=== PATIENT | male | born 1990 | race African-American/Black ===

== ENCOUNTER 2019-04-19 09:16 | Day surgery (SDC) | payer OTHER ==
[2019-04-18 16:50] VITALS: Ht 172.7 cm; Wt 72.7 kg
[2019-04-19] VITALS (16 sets, daily range): BP systolic 133–161; BP diastolic 68–101; PULSE 67–88; RESP 9–40
[~2019-04-19] VITALS: Ht 172.7 cm; Wt 72.7 kg
[~2019-04-19 09:16] MED LIST: CEPH500C PO
[2019-04-19] MEDS ORDERED: LACTATED RINGER'S 1,000 ML IV SCH (10:30)
[2019-04-19] MEDS ORDERED: LIDOCAINE 1%/EPI (1:100,000) (MDV) 20 ML ONE (11:17)
[2019-04-19] MEDS ORDERED: OXYMETAZOLINE 0.05% NASAL SPRAY (15 ML) NASAL ONE (11:18)
[2019-04-19] MEDS ORDERED: ONDANSETRON 4 MG INJ IV PRN (11:30)
[2019-04-19] MEDS ORDERED: DIPHENHYDRAMINE 50 MG INJ IV PRN (11:30)
[2019-04-19] MEDS ORDERED: FENTAnyl 50 MCG/ML VIAL IV PRN ×3 (11:30)
[2019-04-19] MEDS ORDERED: OXYCODONE/ACETAMINOPHEN (5/325) TAB PO PRN (11:30)
[2019-04-19] MEDS ORDERED: HYDROmorphONE 1 MG/5 ML IV SYRINGE IV PRN ×3 (11:30)
[2019-04-19] MEDS ORDERED: PROCHLORPERAZINE 10 MG INJ IV PRN (11:30)
[2019-04-19] MEDS ORDERED: MEPERIDINE 25 MG INJ IV PRN (11:30)
[2019-04-19] MEDS ORDERED: MIDAZOLAM 1 MG/ML 2 ML INJ ONE (11:47)
[2019-04-19] MEDS ORDERED: EPHEDrine 25 MG/5 ML SYG ONE (11:47)
[2019-04-19] MEDS ORDERED: FENTAnyl 50 MCG/ML VIAL ONE (11:47)
[2019-04-19] MEDS ORDERED: SEVOFLURANE 15 MIN ONE (11:47)
[2019-04-19] MEDS ORDERED: CEFAZOLIN 1 GM INJ ONE (11:55)
[2019-04-19] MEDS ORDERED: LIDOCAINE 2% (SDV) 5 ML INJ ONE (11:56)
[2019-04-19] MEDS ORDERED: PROPOFOL 40 ML ONE (11:56)
[2019-04-19] MEDS ORDERED: ONDANSETRON 4 MG INJ ONE (11:58)
[2019-04-19] MEDS ORDERED: DEXAMETHASONE 4 MG/ML 5 ML INJ ONE (11:58)
[2019-04-19] MEDS ORDERED: SUCCINYLCHOLINE CHLORIDE 100 MG/5 ML SYG IV ONE (12:06)
[2019-04-19] MEDS ORDERED: HYDROmorphONE 2 MG/ML SYG ONE (13:00)
[2019-04-19] MEDS ORDERED: hydrALAzine 20 MG INJ IV PRN (13:30)
== END 2019-04-19 15:05 | disposition home or self-care (01) ==
LOC: SDS 09:16
PROVIDERS: ATTEND Otolaryngology
DX: J34.2 Deviated nasal septum (principal); J34.3 Hypertrophy of nasal turbinates
CPT/HCPCS: 30140; 30520; J0360; J0690; J1100; J1170; J2250; J2405; J3010; Z7512; Z7610